=== PATIENT | female | born 1950 | race Hispanic/Latino ===

== ENCOUNTER 2019-01-20 05:23 | Observation (INO) | payer MEDICARE ==
[2019-01-19 11:15] LABS: BASOPHILS % 0.4 % (0.0-1.0); EOSINOPHILS # (AUTO) 0.1 (0.0-0.4); EOSINOPHILS % 2.4 % (0.0-6.0); HEMATOCRIT 38.4 % (34.2-44.1); HEMOGLOBIN 12.6 g/dL (12.0-16.0); LYMPHOCYTES # (AUTO) 1.7 (1.0-3.2); LYMPHOCYTES % 30.3 % (18.0-39.1); MEAN CORPUSCULAR HGB CONC 32.8 g/dL (31-35); MEAN CORPUSCULAR VOLUME 88.3 fL (81-99); MONOCYTES # (AUTO) 0.5 (0.2-0.8); MONOCYTES % 8.6 % (4.4-11.3); NEUTROPHILS # (AUTO) 3.2 (2.1-6.9); NEUTROPHILS % 57.9 % (38.7-80.0); PLATELET COUNT 191 x10e3/uL (140-360); RED BLOOD COUNT 4.35 x10e6/uL (3.6-5.1); RED CELL DISTRIBUTION WIDTH 13.3 % (11.7-14.4)
[2019-01-19 11:36] LABS: ANION GAP 10.6 mmol/L (8-16); BLOOD UREA NITROGEN 12 mg/dL (7-26); BUN/CREATININE RATIO 17 (6-25); CALCIUM 9.6 mg/dL (8.4-10.2); CARBON DIOXIDE 28 mmol/L (22-29); CHLORIDE 102 mmol/L (98-107); CREATININE, SERUM 0.69 mg/dL (0.57-1.11); EST GLOMERULAR FILTRATION RATE > 60 ML/MIN (60-); GLUCOSE 103 mg/dL (74-118); POTASSIUM 3.6 mmol/L (3.5-5.1); SODIUM 137 mmol/L (136-145)
--- NOTE | 2019-01-19 12:00 | Diagnostic Imaging Report ---
EXAMINATION: PA and lateral views of the chest. COMPARISON: None CLINICAL HISTORY: Preoperative evaluation, knee surgery DISCUSSION: Lines/tubes: None. Lungs: The lungs are well inflated and clear. No pneumonia or pulmonary edema. Pleura: No effusion or pneumothorax. Heart and mediastinum: The cardiomediastinal silhouette is normal. Bones and soft tissues: No acute bony abnormalities. Right clavicular plate. IMPRESSION: No acute cardiopulmonary abnormalities. Signed by: Dr. Misbah Darnell M.D. on 01/19/2019 11:56 AM
[~2019-01-20] VITALS: Ht 165.1 cm; Wt 99.9 kg
[~2019-01-20 05:23] MED LIST: CALTRATE 600 W1 EACH PO; LOSARTAN POTAS100 MG PO; METOPROLOL SUCC50 MG PO; NAPROXEN250 MG PO; OMEPRAZOLE40 MG PO; PRAVASTATIN SOD40 MG PO; VIT D3 PO
--- OUTSIDE RECORDS SUMMARY | 2019-01-20 05:26 | XMS REPORT ---
Author Author [facility] Address Unknown Phone Unavailable Care Team Providers Care Oil Burner Journeyman Name Role Phone TABITHA RUSSELL Unavailable Unavailable Problems This patient has no known problems. Allergies, Adverse Reactions, Alerts This patient has no known allergies or adverse reactions. Medications This patient has no known medications. Results Test Description Test Time Test Comments Text Results Atomic Results Result Comments CHEST 2 VIEWS 2019-01-19 11:56:00 [place] [address] Patient Name: DAHLIA BUSH MR #: [id number] : 1950 Age/Sex: 68/F Req #: [id number] [facility] Physician: Ordered by: TABITHA RUSSELL MD Report #: [id number] Location: OR Room/Bed: Procedure: [id number] DX/CHEST 2 VIEWS Exam Date: 01/19/19 Exam Time: 1103 REPORT STATUS: Signed EXAMINATION: PA and lateral views of the chest. COMPAR CANDIDA: None CLINICAL HISTORY: Preoperative evaluation, knee surgery DISCUSSION: Lines/tubes: None. Lungs: The lungs are well inflated and clear. No pneumonia or pulmonary edema. Pleura: No effusion or pneumothorax. Heart and mediastinum: The cardiomediastinal silhouette is normal. Bones and soft tissues: No acute bony abnormalities. Right clavicular plate. IMPRESSION: No acute cardiopulmonary abnormalities. Signed by: Dr. Georgia Alcantar M.D. on 01/19/2019 11:56 AM Dictated By: GEORGIA ALCANTAR MD [id number] Transcribed By: ANDREIA on 01/19/19 1156 COPY TO: TABITHA RUSSELL MD
[2019-01-20] MEDS ORDERED: GABAPENTIN 300 MG CAP ONE (05:45)
[2019-01-20] MEDS ORDERED: CELECOXIB 200 MG CAP ONE (05:45)
[2019-01-20] MEDS ORDERED: DEXAMETHASONE SOD PHOS 10 MG/1 ML VIAL ONE (05:45)
[2019-01-20] MEDS ORDERED: CEFAZOLIN SOD 2 GM/D5W 50ML 50 ML IV ONE (05:46)
[2019-01-20] MEDS ORDERED: ROPIVACAINE 246.25 MG, EPINEPHRINE HCL 1:1000 1ML 0.5 MG, CLONIDINE HCL 0.08 MG, KETORO... INJ ONE ×5 (07:30)
[2019-01-20] MEDS ORDERED: VANCOMYCIN HCL 1 GM VIAL ONE (08:10)
[2019-01-20] MEDS ORDERED: SODIUM CHLORIDE 0.9% 500ML 500 ML ONE (08:10)
[2019-01-20] MEDS ORDERED: TRANEXAMIC ACID 1,000 MG/10 ML ML ONE (08:10)
[2019-01-20] MEDS ORDERED: BACITRACIN 50,000 UNIT VIAL ONE (08:11)
[2019-01-20] MEDS ORDERED: PROMETHAZINE HCL (IM) 25 MG/ML VIAL INJ PRN (09:30)
[2019-01-20] MEDS ORDERED: ACETAMINOPHEN 650 MG SUPP PR PRN (09:30)
[2019-01-20] MEDS ORDERED: HYDROCODONE/APAP 7.5MG-325MG 1 EA TAB PO PRN (09:30)
[2019-01-20] MEDS ORDERED: KETOROLAC TROMETHAMINE 30 MG/ML VIAL IV PRN (09:30)
[2019-01-20] MEDS ORDERED: ONDANSETRON HCL INJ 2MG/ML 2ML 2 MG/ML VIAL IV PRN (09:30)
[2019-01-20] MEDS ORDERED: HYDROCODONE/APAP 5MG-325MG TAB PO PRN (09:30)
[2019-01-20] MEDS ORDERED: DIPHENHYDRAMINE HCL INJ 50 MG/ML VIAL IM/IV PRN (09:30)
[2019-01-20] MEDS: SODIUM CHLORIDE 0.9% 1000ML 1,000 ML IV SCH ×3 (09:30→19:30)
[2019-01-20] MEDS ORDERED: DOCUSATE SODIUM 100 MG CAP PO PRN (09:30)
--- NOTE | 2019-01-20 09:40 | NUR ---
SPIRITUAL CARE - Pre-Surgery Assessment: Pt in bed. Pt's at bedside. Pt reported supportive attention from family and friends. Intervention: I provided pastoral presence, hospitality, and sympathetic listening. I acquainted pt with availability of profiling machine setup operator while hospitalized. Outcome: Pt expressed appreciation for visit. No need for follow up indicated at this time. VERONICA Gonzalezlain Spiritual Care Department O: [phone] Pager: [phone] ([phone] number calling from)
--- NOTE | 2019-01-20 10:00 | Diagnostic Imaging Report ---
Exam: Left knee 2 views History: Postoperative study Comparison: None. Findings: See impression Impression: Status post total left knee arthroplasty with intact femoral and tibial components. Overlying skin lucia and subcutaneous gas compatible with recent surgery. Additionally, there is an acute, oblique incomplete nondisplaced fracture of the proximal fibular metadiaphysis. Signed by: Dr. Sekou Rivera M.D. on 01/20/2019 9:56 AM
[2019-01-20] MEDS: ACETAMINOPHEN 1000 MG/100 ML IV SCH ×2 (12:00→17:02)
[2019-01-20] MEDS ORDERED: KETOROLAC TROMETHAMINE 30 MG/ML VIAL ONE (12:41)
--- NOTE | 2019-01-20 13:15 | NUR ---
ARRIVED VIA STRETCHER FROM PACU, AA&OX3, 2LNC , LLE WITH EMILIA WRAP CDI, DENIES PAIN AT THIS TIME, ORIENTED TO ROOM AND CALL LIGHT SYSTEM, CALL LIGHT WITHIN REACH, FAMILY AT SIDE
[2019-01-20 15:26] VITALS: BP 111/55
--- NOTE | 2019-01-20 15:57 | NUR ---
TOLERATING PO, DENIES PAIN, CALL LIGHT WITHIN REACH
[2019-01-20] MEDS: CELECOXIB 100 MG CAP PO SCH (16:06)
[2019-01-20] MEDS: ASPIRIN 325 MG TAB PO SCH (16:06)
[2019-01-20] MEDS: CEFAZOLIN SOD 1 GM/NS 50ML 50 ML IV SCH (16:06)
[2019-01-20 16:09] VITALS: BP 103/56
--- NOTE | 2019-01-20 17:06 | Operative Report ---
DATE OF PROCEDURE: 01/20/2019 SURGEON: Sekou Hugo MD FOOD SERVICE ATTENDANT: Ervin Montiel PA-C. PREOPERATIVE DIAGNOSIS: Osteoarthritis, left knee. POSTOPERATIVE DIAGNOSIS: Osteoarthritis, left knee. PROCEDURE: Left total knee arthroplasty. INDICATIONS: The patient is a 68-year-old lady, who has end-stage arthritis of her left knee. She has failed conservative management and would like to proceed with a left total knee replacement. The risks and benefits of the procedure have been discussed. She stated she understands and wishes to proceed. DESCRIPTION OF PROCEDURE: The patient was brought to the operating room and placed under general anesthetic. She received prophylactic antibiotics, a regional block and tranexamic acid in the holding area. Her left lower extremity was prepped and draped in a sterile manner. A preoperative time-out was performed. The extremity was exsanguinated and the proximal tourniquet was inflated to 300 mmHg. An anterior approach with a medial parapatellar arthrotomy was performed. Clear synovial fluid was removed from the joint. Soft tissue releases were performed to bring the knee up into flexion with the patella everted. The cruciate ligaments were sacrificed. A Randolph [employer] Nephew Legion posterior-stabilized knee system was used throughout the case. Marginal osteophytes and meniscal remnants were excised. An extramedullary cutting guide was used to resect the proximal tibia. The cut was referenced off the affected medial compartment. The tibial baseplate was noted to be a size #6. The central fin punch was impacted and attention was directed towards the distal femur. An intramedullary cutting guide was used to resect the distal femur in 6 degrees of valgus and external rotation referencing off a combination of landmarks including Nicci's line, the epicondylar axis, and the posterior condyles. The femoral component was a size #7. There was a notable ridge running up the anterior and lateral distal femur. The anterior and posterior cuts were made. A trial reduction was performed. A 9 mm ultracongruent tibial inset provided appropriate soft tissue balancing in full extension and 90 degrees of flexion. The patella was then resurfaced with a 32 mm x 9 mm patellar button. The thickness was checked before and after and was right at 23 mm. Patellar tracking was noted to be concentric. The trial implants were then all removed. A 100 mL premixed pericapsular ADILENE injection was placed into the surrounding soft tissue. The knee was thoroughly irrigated with the shower tip pulsatile lavage. The components were then cemented into place using a single mix of Palacos cement preloaded with antibiotics. Care was taken to remove extravasated cement. The wound was further irrigated with the pulsatile lavage while the cement cured. On a number of occasions, the knee was also sprayed with a mixture of polymyxin and vancomycin. The arthrotomy was then closed with interrupted #1 Ethibond. The knee was put through flexion and extension to ensure a secure closure. The skin was carefully closed with subcuticular Vicryl and lucai. A sterile Aquacel bandage was applied. The patient was extubated and transported to the recovery room in stable condition. Blood loss was minimal. All needle and sponge counts were correct. Sekou Hugo MD DR/SATISH /[id number]
--- NOTE | 2019-01-20 18:05 | NUR ---
PER PHYSICAL THERAPIST, PT'S LEG BUCKLED EARLIER WITH THERAPY, SO PT ASSISTED TO BEDSIDE COMMODE, VOIDED WITHOUT DIFFICULTY, ASSISTED BACK TO BED, CALL LIGHT WITHIN REACH
[2019-01-20] MEDS ORDERED: LIDOCAINE HCL 2% LOCAL INJ 5 ML SDV VIAL INJ ONE (19:09)
[2019-01-20] MEDS ORDERED: DEXAMETHASONE SOD PHOS INJ 4 MG/ML VIAL ONE (19:09)
[2019-01-20] MEDS ORDERED: ONDANSETRON HCL INJ 2MG/ML 2ML 2 MG/ML VIAL ONE (19:09)
[2019-01-20] MEDS ORDERED: PROPOFOL IV EMULSION 10 MG/ML 20 ML VIAL ONE (19:09)
[2019-01-20] MEDS ORDERED: SEVOFLURANE INHAL SOLN 250 ML PEN BTL ONE (19:09)
[2019-01-20] MEDS ORDERED: ROPIVACAINE 0.5% 5 MG/ML 30 ML SDV ONE (19:22)
[2019-01-20] MEDS ORDERED: LIDOCAINE 2% /EPINEPHRINE 20 ML SDV INJ ONE (19:22)
[2019-01-20] MEDS ORDERED: FENTANYL CITRATE/PF 100MCG/2 ML INJ ONE (19:32)
[2019-01-20] MEDS ORDERED: MIDAZOLAM HCL 2 MG/2 ML VIAL ONE (19:32)
[2019-01-20 20:00] VITALS: BP 98/52
[2019-01-20 21:00] VITALS: BP 98/52
[2019-01-20] MEDS ORDERED: ZOLPIDEM TARTRATE 5 MG TAB PO PRN (21:00)
[2019-01-21] VITALS: BP 112/56
[2019-01-21] MEDS: CEFAZOLIN SOD 1 GM/NS 50ML 50 ML IV SCH ×3 (00:20→05:33)
[2019-01-21] MEDS: ACETAMINOPHEN 1000 MG/100 ML IV SCH ×3 (00:41→06:16)
[2019-01-21 04:00] VITALS: BP 108/53
[2019-01-21] MEDS: SODIUM CHLORIDE 0.9% 1000ML 1,000 ML IV SCH (05:30)
[2019-01-21] MEDS ORDERED: CEFAZOLIN SOD 1 GM/NS 50ML 50 ML IV SCH ×2 (06:00→08:00)
[2019-01-21 06:55] LABS: HEMATOCRIT 31.1 % (34.2-44.1); HEMOGLOBIN 10.3 g/dL (12.0-16.0)
--- NOTE | 2019-01-21 07:29 | NUR ---
Rcvd patient in report this am. Patient is asleep in bed No s/s of distress noted
[2019-01-21 08:07] VITALS: BP 118/59
[2019-01-21] MEDS: CELECOXIB 100 MG CAP PO SCH (08:38)
[2019-01-21] MEDS: ASPIRIN 325 MG TAB PO SCH (08:38)
[2019-01-21] MEDS ORDERED: ASPIRIN325 MG PO (08:52)
[2019-01-21] MEDS ORDERED: PANTOPRAZOLE SOD 40 MG TABEC PO SCH (09:00)
[2019-01-21] MEDS ORDERED: METOPROLOL SUCCINATE 50 MG TAB XL PO SCH (09:00)
[2019-01-21] MEDS ORDERED: ACETAMINOPHEN 1000 MG/100 ML IV PRN (09:30)
--- NOTE | 2019-01-21 09:30 | NUR ---
ZHANNA EXPLAINED , SIGNED BY PT AND PLACED ON CHART COPY OF ZHANNA IN PT'S CARE TRANSITION FOLDER
--- NOTE | 2019-01-21 09:30 | NUR ---
Patient is AAOx3. Post op day 1 left knee replacement. Dressing clean and dry to left knee. Lung velazquez clear to auscultation. Bowel sounds present x4. Patient assisted up to chair for breakfast. No s/s of distress noted. PRN pain meds given.
--- NOTE | 2019-01-21 10:07 | Consultation ---
DATE OF CONSULTATION: REASON FOR CONSULTATION: Postop medical management. HISTORY OF PRESENT ILLNESS: The patient is a 68-year-old lady status post left total knee arthroplasty for end-stage osteoarthritis. She is doing well postoperatively with some pain, but the pain is controlled and denies any fever, chills, nausea, vomiting, headache, shortness of breath, or dizziness on review of systems. PAST MEDICAL HISTORY: Significant for diet-controlled diabetes, hypertension, and hyperlipidemia. MEDICATIONS: See MAR. ALLERGIES: NONE. SOCIAL HISTORY: Nonsmoker, nondrinker. FAMILY HISTORY: Noncontributory. PHYSICAL EXAMINATION: VITAL SIGNS: Temperature 96.8, pulse 60, blood pressure 112/56, sats are 98%. GENERAL: She is in no apparent distress. LUNGS: Clear to auscultation. NECK: Supple. CARDIOVASCULAR: Regular rate and rhythm. ABDOMEN: Good bowel sounds, soft, nontender. EXTREMITIES: No clubbing, cyanosis. NEUROLOGICAL: Nonfocal. ASSESSMENT AND PLAN: 1. Status post left total knee arthroplasty with some left knee pain. We will continue the postoperative care. 2. Hypertension. Continue to monitor and we will start the medications at discharge. 3. Hyperlipidemia. We will restart her medications at discharge later today. In the meanwhile, we will check a CBC. Please see the chart for full details. MD EKTA Caldwell/SATISH /[id number]
--- NOTE | 2019-01-21 10:29 | NUR ---
CASE MANAGEMENT ASSESSMENT Environmental Engineering Aide to bedside to discuss plan of care with patient/family. CM/SW role and care transitions discussed. Anticipated discharge plan discussed along with duration of care. CM/SW discussed patients right to make decisions in care. CM/SW work hours given. Patient lives: with her Rajeev Langley Admit/Transfer: from PACU Hospital/ER visits since last admit: 0 POA/Emergency contact: Rajeev Langley [phone] Current/Previous Home Health: Home health set up by Dr. Hugo's office with [facility]. Pt is agreeable to use [facility]. Choice letter signed and placed in chart. Copy to pt. CM called and spoke with Jennifer with intake. She states they will be able to see pt tomorrow. P [phone] / F [phone]. Faxed operative report and PT notes to [facility]. PCP/Follow-up Care: Dr. Avery Arroyo - PCP; Dr. Hguo - ortho; Pt already has follow up appointment on January 30, she will call to get a time Current/Previous DME: none. pt provided with walker from hospital. CM called [facility] to check on status of orders from Dr. Hugo's office. Spoke with Kb, she stated that Rosenda (delivery lead) will contact pt and deliver equipment tomorrow. CM informed her that CM will provide walker. Scale of 1-10 how comfortable does patient feel with disease management in outpatient settin Other Services: none Employment Status: employed at [employer] Areas of Concerns: left knee arthroplasty Referral Needs: home health Education Needs: post operative instructions IMM/CHAO given and signed (if applicable): CHAO Goal for discharge: home with home health CM/SW left business card at the bedside with contact information. Name and number was also written on the patients whiteboard. Patient verbalized understanding of discussion. CM will follow-up with ongoing discharge and transition of care needs.
[2019-01-21 10:39] VITALS: BP 118/59
[2019-01-21] MEDS ORDERED: NORCO 7.5-3251 EACH PO (11:42)
--- NOTE | 2019-01-21 12:02 | NUR ---
Patient discharged from facility to home. Patient assisted out via staff. Reviewed all discharge paperwork, follow up appts. and RX's given. Family verbalized understanding as well as the patient
[2019-01-21] MEDS ORDERED: LOSARTAN POTASSIUM 100 MG TAB PO SCH (21:00)
== END 2019-01-21 11:59 | disposition home health service (06) ==
LOC: OR 05:23 → PACU V 09:31 → MED/SURG 13:32
PROVIDERS: ADMIT Specialist; ATTEND Specialist
DX: M17.12 Unilateral primary osteoarthritis, left knee (principal); E11.9 Type 2 diabetes mellitus without complications; E78.00 Pure hypercholesterolemia, unspecified; M85.80 Other specified disorders of bone density and structure, unspecified site; Z83.3 Family history of diabetes mellitus; Z82.62 Family history of osteoporosis; K21.9 Gastro-esophageal reflux disease without esophagitis; E78.5 Hyperlipidemia, unspecified; I83.90 Asymptomatic varicose veins of unspecified lower extremity
CPT/HCPCS: 27447; 36415 ×2; 71046; 73560; 80048; 85014; 85018; 85025; 86850; 86900; 86920; 97116 ×2; 97162; 97530; C1713; G0378 ×2; J0131 ×2; J0171; J0690 ×3; J1100 ×2; J1885; J2001 ×2; J2250; J2405; J2704; J2795; J3370; J7030; J7040; S0164

== ENCOUNTER 2019-09-01 06:30 | Observation (INO) | payer MEDICARE ==
[~2019-09-01] VITALS: Ht 165.1 cm; Wt 89.8 kg
[~2019-09-01 06:30] MED LIST changes: +ASPIRIN325 MG PO; +NORCO 7.5-3251 EACH PO
[2019-09-01] MEDS ORDERED: CELECOXIB 200 MG CAP ONE (07:04)
[2019-09-01] MEDS ORDERED: DEXAMETHASONE SOD PHOS 10 MG/1 ML VIAL ONE (07:05)
[2019-09-01] MEDS ORDERED: CEFAZOLIN SOD 1 GM/NS 50ML 100 ML IV ONE (07:05)
[2019-09-01] MEDS ORDERED: GABAPENTIN 300 MG CAP ONE (07:05)
[2019-09-01] MEDS ORDERED: VANCOMYCIN HCL 1,000 MG ONE (07:11)
[2019-09-01] MEDS ORDERED: TRANEXAMIC ACID 1,000 MG/10 ML ML ONE (07:12)
[2019-09-01] MEDS ORDERED: SODIUM CHLORIDE 0.9% 500ML 500 ML ONE (07:12)
[2019-09-01] MEDS ORDERED: BACITRACIN 50,000 UNIT VIAL ONE (07:12)
[2019-09-01] MEDS ORDERED: ROPIVACAINE 246.25 MG, EPINEPHRINE HCL 1:1000 1ML 0.5 MG, CLONIDINE HCL 0.08 MG, KETORO... INJ ONE ×5 (07:30)
[2019-09-01] MEDS ORDERED: KETOROLAC TROMETHAMINE 30 MG/ML VIAL IV PRN (09:45)
[2019-09-01] MEDS ORDERED: DIPHENHYDRAMINE HCL INJ 50 MG/ML VIAL IM/IV PRN (09:45)
[2019-09-01] MEDS ORDERED: ONDANSETRON HCL INJ 2MG/ML 2ML 2 MG/ML VIAL IV PRN (09:45)
[2019-09-01] MEDS ORDERED: ZOLPIDEM TARTRATE 5 MG TAB PO PRN (09:45)
[2019-09-01] MEDS ORDERED: HYDROCODONE/APAP 5MG-325MG TAB PO PRN (09:45)
[2019-09-01] MEDS ORDERED: HYDROCODONE/APAP 7.5MG-325MG 1 EA TAB PO PRN (09:45)
[2019-09-01] MEDS ORDERED: DOCUSATE SODIUM 100 MG CAP PO PRN (09:45)
[2019-09-01] MEDS ORDERED: PROMETHAZINE HCL (IM) 25 MG/ML VIAL IM PRN (09:45)
--- NOTE | 2019-09-01 10:44 | Diagnostic Imaging Report ---
Exam: Right knee 2 views Clinical history: Status post knee replacement Findings: The patient is status post right total knee arthroplasty. The joint prosthesis appear in its expected location. There is no evidence of acute fracture or malalignment. Anus air is noted consistent with recent surgery. Impression: 1. Status post right total knee arthroplasty with postoperative changes. Signed by: Dr. Arun Short MD on 09/01/2019 10:41 AM
--- NOTE | 2019-09-01 11:41 | NUR ---
RECEIVED PATIENT FROM PACU. PATIENT A/O X3, EVEN RESPIRATIONS ON 3LNC. LUNG SOUNDS CLEAR TO AUSCULTATION. BOWEL SOUNDS ACTIVE. RIGHT KNEE DRESSING CLEAN, DRY, AND INTACT. FOOT PUMPS IN PLACE. LEFT LEG MIGUEL HOSE. RIGHT HAND 20 GAUGE IV WITH NS @ 100 CC/HR. PAIN 2/10 IN RIGHT KNEE, PRN PAIN MEDICATION. VS STABLE. ORIENTED PATIENT TO ROOM AND CALL LIGHT. BED LOW, WHEELS LOCKED, SIDE RAILS X2. CALL LIGHT IN REACH WILL CONTINUE TO MONITOR PATIENT.
[2019-09-01 12:36] VITALS: BP 122/60
--- NOTE | 2019-09-01 12:37 | Operative Report ---
DATE OF PROCEDURE: 09/01/2019 SURGEON: Sekou Hugo MD JUSTOWRITER OPERATOR: Ervin Montiel, certified PA. PREOPERATIVE DIAGNOSIS: Osteoarthritis, right knee. POSTOPERATIVE DIAGNOSIS: Osteoarthritis, right knee. PROCEDURE: Right total knee arthroplasty. INDICATIONS: The patient is a 68-year-old lady, who has advanced osteoarthritis of her right knee. She has failed conservative management and would like to proceed with a right total knee replacement. The risks and benefits of the procedure have been discussed. She is familiar. She has been through a left total knee replacement. She states she understands and wishes to proceed. PROCEDURE IN DETAIL: The patient was brought to the operating room and placed under general anesthetic. She received a regional block, prophylactic antibiotics, and tranexamic acid in the holding area. Her right lower extremity was prepped and draped in a sterile manner. A preoperative time-out was performed. The extremity was exsanguinated and a proximal tourniquet was inflated to 300 mmHg. An anterior approach with a medial parapatellar arthrotomy was performed. Soft tissue releases were performed to bring the knee up into flexion with the patella everted. Meniscal remnants and marginal osteophytes were removed. The cruciate ligaments were sacrificed. A Randolph and NephNMT Medical Knee System was used throughout the case. An extra-articular alignment guide was used to resect the proximal tibia. The tibial base plate was noted to be a size 6. The central fin punch was impacted and attention was directed towards the distal femur. An intramedullary cutting guide was used to resect the distal femur in 6 degrees of valgus and rotation referencing off a combination of landmarks including Whitesides line, the epicondylar axis, and the posterior condyles. The femoral component was a size #7. The anterior and posterior cuts were made. Trial reductions were performed. A 9 mm ultracongruent tibial insert provided appropriate soft tissue balancing in flexion and extension. The patella was resurfaced with a 32 mm x 9 mm patellar button. The thickness was checked before and after resurfacing and was right around 24 mm. Patellar tracking was noted to be concentric. The trial implants were removed. A 100 mL premixed pericapsular ADILENE injection was placed into the surrounding soft tissue. The knee was thoroughly irrigated with a shower tip pulsatile lavage. All bone cuts had been irrigated with a diluted mixture of polymyxin and vancomycin spray. The components were cemented into place using a single mix of Palacos cement preloaded with antibiotics. Care was taken to remove extravasated cement. The wound was further irrigated with a shower tip pulsatile lavage while the cement cured. The arthrotomy was then closed after sprinkling 500 mg of vancomycin powder into the joint. The interrupted #1 Ethibond sutures were used to close the arthrotomy. The knee was put through flexion and extension to ensure a secure closure. The skin was closed with subcuticular Vicryl and lucia. A sterile bandage was applied. The patient was extubated and transported to the recovery room in stable condition. Blood loss was minimal. All needle and sponge counts were correct. Sekou Hugo MD DR/SATISH /[id number]
[2019-09-01 12:39] VITALS: BP 122/60
[2019-09-01 12:44] VITALS: BP 122/60
[2019-09-01] MEDS: ACETAMINOPHEN 1000 MG/100 ML IV SCH ×2 (12:55→17:11)
[2019-09-01] MEDS: SODIUM CHLORIDE 0.9% 1000ML 1,000 ML IV SCH ×2 (12:56→19:35)
[2019-09-01] MEDS ORDERED: ACETAMINOPHEN 1000 MG/100 ML IV ONE (14:03)
[2019-09-01] MEDS ORDERED: DEXAMETHASONE SOD PHOS INJ 4 MG/ML VIAL ONE (14:03)
[2019-09-01] MEDS ORDERED: PROPOFOL IV EMULSION 10 MG/ML 20 ML VIAL ONE (14:03)
[2019-09-01] MEDS ORDERED: SEVOFLURANE INHAL SOLN 250 ML PEN BTL ONE (14:03)
[2019-09-01] MEDS ORDERED: LIDOCAINE HCL 2% LOCAL INJ 5 ML SDV VIAL INJ ONE (14:03)
[2019-09-01] MEDS ORDERED: ONDANSETRON HCL INJ 2MG/ML 2ML 2 MG/ML VIAL ONE (14:03)
--- NOTE | 2019-09-01 14:10 | NUR ---
Visit made by the Spiritual Care Department Pastoral Visitor, Vickie Estrada. PV provided pastoral presence, prayer, hospitality, and supportive listening. Pastoral Visitor informed pt/family of the scope of Fitness And Wellness Coordinator Services and availability. VERONICA DE LA CRUZ Carpet Installer Spiritual Care Department O: [phone] Pager: [phone] ([phone] number calling from)
[2019-09-01] MEDS ORDERED: FENTANYL CITRATE/PF 100MCG/2 ML INJ ONE (14:13)
[2019-09-01] MEDS ORDERED: MIDAZOLAM HCL 2 MG/2 ML VIAL ONE (14:13)
--- NOTE | 2019-09-01 15:35 | NUR ---
PATIENT HAS VOIDED SINCE SURGERY
[2019-09-01] MEDS: CEFAZOLIN SOD 1 GM/NS 50ML 50 ML IV SCH (16:34)
[2019-09-01] MEDS: CELECOXIB 200 MG CAP PO SCH (16:34)
[2019-09-01 17:06] VITALS: BP 99/53
[2019-09-01] MEDS: ASPIRIN 325 MG TAB PO SCH (17:08)
[2019-09-01] MEDS ORDERED: LIDOCAINE 2% /EPINEPHRINE 20 ML SDV INJ ONE (18:45)
[2019-09-01] MEDS ORDERED: MEPIVACAINE HCL 2% 20 ML VIAL ONE (18:45)
--- NOTE | 2019-09-01 18:45 | NUR ---
PATIENT PLACED ON CPM AT THIS TIME. TOLERATING WELL
[2019-09-01 20:00] VITALS: BP 110/54
[2019-09-01 21:25] VITALS: BP 99/53
[2019-09-02] VITALS: BP 110/62
[2019-09-02] MEDS: ACETAMINOPHEN 1000 MG/100 ML IV SCH ×2 (00:09→05:58)
[2019-09-02] MEDS: CEFAZOLIN SOD 1 GM/NS 50ML 50 ML IV SCH ×2 (01:06→07:58)
[2019-09-02 04:00] VITALS: BP 114/56
[2019-09-02 05:21] LABS: HEMATOCRIT 30.9 % (34.2-44.1)
[2019-09-02] MEDS: SODIUM CHLORIDE 0.9% 1000ML 1,000 ML IV SCH (05:35)
--- NOTE | 2019-09-02 07:02 | NUR ---
RECEIVED PATIENT AWAKE RESTING IN BED NO SIGNS OF DISTRESS. BED LOW, WHEELS LOCKED, SIDE RAILS X2. CALL LIGHT IN REACH WILL CONTINUE TO MONITOR PATIENT.
[2019-09-02 07:29] VITALS: BP 114/57
[2019-09-02] MEDS: ASPIRIN 325 MG TAB PO SCH (07:58)
[2019-09-02] MEDS: CELECOXIB 200 MG CAP PO SCH (07:58)
[2019-09-02 08:10] VITALS: BP 114/57
--- NOTE | 2019-09-02 09:16 | NUR ---
DR GALICIA OFFICE PREARRANGED FOLLOWING DISCHARGE PLAN OF:RETURNING HOME TO [facility] [address], [place], [address] HOME HEALTH WITH CONFIRMED WITH [facility] [phone] DIMA ELKINS 3 IN ONE COMMODE. AND CPM. PROVIDED BY THERAPY [facility] [place] TO BE DELIVERED TO HOME PER KHAN[facility] [phone]
[2019-09-02] MEDS ORDERED: ASPIR 8181 MG PO (10:14)
[2019-09-02] MEDS ORDERED: ONDANSETRON HCL 4 MG ORAL DISINTEGRATING TAB PO PRN (10:15)
--- NOTE | 2019-09-02 10:35 | NUR ---
REMOVED PATIENTS IV. CATHETER TIP INTACT AND PRESSURE DRESSING APPLIED.
--- NOTE | 2019-09-02 10:50 | NUR ---
PATIENT DISCHARGED FROM FACILITY. PATIENT GATHERED ALL PERSONAL BELONGINGS, DISCHARGE INSTRUCTIONS, AND FOLLOW UP INFORMATION. LEFT UNIT IN WHEELCHAIR AND WENT HOME VIA PRIVATE AUTO. NO SIGNS OF DISTRESS WHEN LEAVING FACILITY.
--- NOTE | 2019-09-02 11:46 | Consultation ---
DATE OF CONSULTATION: REASON FOR CONSULTATION: Postop medical management. HISTORY OF PRESENT ILLNESS: The patient is a 68-year-old lady, status post right total knee arthroplasty, who is doing well postoperatively, complains of minimal pain of the right knee. REVIEW OF SYSTEMS: Denies any fever, chills, nausea, vomiting, headache, shortness of breath, or dizziness. PAST MEDICAL HISTORY: Significant for reflux, hypertension, and hyperlipidemia. MEDICATIONS: See MAR. ALLERGIES: NONE. SOCIAL HISTORY: Nondrinker. . 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 Nonsmoker. FAMILY HISTORY: Diabetes, osteoporosis. PHYSICAL EXAMINATION: VITAL SIGNS: Temperature 96.9, pulse 61, blood pressure 110/62, sats 96%. GENERAL: No apparent distress, lying in bed. NECK: Supple. No lymphadenopathy. CARDIOVASCULAR: Regular rate and rhythm. LUNGS: Clear to auscultation bilaterally. ABDOMEN: Good bowel sounds. Soft, nontender. EXTREMITIES: No clubbing, cyanosis. NEUROLOGIC: Nonfocal. ASSESSMENT AND PLAN: 1. Right knee pain. Continue with postoperative care. 2. Anemia. Check a CBC. 3. Hypertension. Continue to monitor. 4. Hyperlipidemia. Restart her medications at discharge. 5. Reflux disease. Restart her medicines at discharge. 6. Please see hospital chart for full details. MD EKTA Caldwell/SATISH /[id number]
[2019-09-02] MEDS ORDERED: ACETAMINOPHEN 1000 MG/100 ML IV PRN (12:00)
[2019-09-02] MEDS ORDERED: ACETAMINOPHEN 650 MG SUPP PR PRN (12:00)
== END 2019-09-02 10:50 | disposition home health service (06) ==
LOC: OR 06:30 → PACU V 09:38 → MED/SURG 11:42
PROVIDERS: ADMIT Specialist; ATTEND Specialist
DX: M17.0 Bilateral primary osteoarthritis of knee (principal); E11.9 Type 2 diabetes mellitus without complications; E78.00 Pure hypercholesterolemia, unspecified; M85.80 Other specified disorders of bone density and structure, unspecified site; Z96.652 Presence of left artificial knee joint; D64.9 Anemia, unspecified; K21.9 Gastro-esophageal reflux disease without esophagitis; G89.18 Other acute postprocedural pain; E78.5 Hyperlipidemia, unspecified
CPT/HCPCS: 27447; 36415; 73560; 85014; 85018; 86850; 86900; 93005; 97116 ×2; 97162; 97530; C1713; G0378 ×2; J0131 ×2; J0171; J0670; J0690 ×2; J1100 ×2; J1885; J2001 ×2; J2250; J2405; J2704; J2795; J3010; J3370; J7030; J7040